=== PATIENT | male | born 1940 | race Two or more races ===

== ENCOUNTER 2022-11-11 14:00 | Emergency (ER) | payer OTHER ==
[~2022-11-11] VITALS: Ht 165.1 cm; Wt 76.2 kg
[~2022-11-11 14:00] MED LIST: ENALAPRIL MALEA20 MG
== END 2022-11-11 15:59 | disposition home or self-care (01) ==
LOC: ER 14:00
DX: I10 Essential (primary) hypertension (principal); Z88.6 Allergy status to analgesic agent; Z88.8 Allergy status to other drugs, medicaments and biological substances